=== PATIENT | male | born 1990 | race African-American/Black ===

== ENCOUNTER 2018-06-20 20:49 | Emergency (ER) | payer OTHER ==
[~2018-06-20] VITALS: Ht 182.9 cm; Wt 81.8 kg
[2018-06-20] MEDS ORDERED: methylPREDNISolone INJ 125 MG/2 ML VIAL (J2930) IM ONE (21:45)
[2018-06-20 22:33] VITALS: BP 132/81
== END 2018-06-20 22:29 | disposition home or self-care (01) ==
LOC: M ED 20:49
DX: J34.89 Other specified disorders of nose and nasal sinuses (principal); T50.995A Adverse effect of other drugs, medicaments and biological substances, initial encounter; X58.XXXA Exposure to other specified factors, initial encounter; Y92.89 Other specified places as the place of occurrence of the external cause
CPT/HCPCS: 96372; 99284; J2930

== ENCOUNTER 2018-07-15 00:18 | Emergency (ER) | payer OTHER ==
[2018-07-15 01:32] VITALS: BP 134/81
== END 2018-07-15 01:54 | disposition home or self-care (01) ==
LOC: M ED 00:18
DX: F41.9 Anxiety disorder, unspecified (principal); Z60.9 Problem related to social environment, unspecified

== ENCOUNTER 2018-12-01 08:35 | Day surgery (SDC) | payer OTHER ==
[~2018-12-01] VITALS: Ht 185.4 cm; Wt 80.7 kg
[~2018-12-01 08:35] MED LIST: LR 1,000 ML IV ONE; ceFAZolin SOD 2 GM in IV 1 EA IV ONE
[2018-12-01] MEDS ORDERED: BUPIVACAINE LIPOSOME/PF 1.3% 20ML VIAL (13.3MG/ML)(EXPAREL)(C9290 PER1MG) As Ordered ONE (09:16)
[2018-12-01] MEDS ORDERED: dexameTHASONE 4 MG/ML 1ML VIAL (J1100) As Ordered ONE (09:16)
[2018-12-01] MEDS ORDERED: BUPIVACAINE HCL 0.5% 10 ML VIAL As Ordered ONE (09:16)
[2018-12-01] MEDS ORDERED: LIDOCAINE 1% MDV 20ML VIAL As Ordered ONE (09:16)
[2018-12-01] MEDS ORDERED: LIDOCAINE 2% INJ 100 MG/5 ML SDV (FOR ANES.) As Ordered ONE (09:52)
[2018-12-01] MEDS ORDERED: ONDANSETRON 4MG/2ML VIAL (J2405) As Ordered ONE (09:52)
[2018-12-01] MEDS ORDERED: PROPOFOL 200 MG/20 ML VIAL As Ordered ONE (09:52)
[2018-12-01] MEDS ORDERED: fentaNYL 100 MCG/2 ML INJECTION (J3010) As Ordered ONE ×2 (09:52→13:29)
[2018-12-01] MEDS ORDERED: MIDAZOLAM INJ 2 MG/2 ML VIAL (J2250) As Ordered ONE (09:53)
[2018-12-01 11:00] VITALS: BP 119/68
[2018-12-01] MEDS ORDERED: fentaNYL 100 MCG/2 ML INJECTION (J3010) IV PRN (11:00)
[2018-12-01] MEDS ORDERED: LR 1,000 ML IV SCH (11:00)
[2018-12-01] MEDS ORDERED: oxyCODONE 5MG TAB PO PRN (11:00)
[2018-12-01] MEDS ORDERED: ONDANSETRON 4MG/2ML VIAL (J2405) IV PRN (11:00)
--- NOTE | 2018-12-02 08:10 | RO ---
DATE OF PROCEDURE: 12/01/2018 PREPROCEDURE DIAGNOSIS: Right foot bunion, hallux valgus. POSTPROCEDURE DIAGNOSIS: Right foot bunion, hallux valgus. PROCEDURE: Right foot bunionectomy and first metatarsal osteotomy. SURGEON: Jose Guillaume DPM DIRECTOR PAYMENT: ANESTHESIA: Monitored anesthesia care, preoperative injection of 16 mL of 1:1 mixture of 1% lidocaine plain and 0.5% Marcaine plain. ESTIMATED BLOOD LOSS: Minimal. MATERIALS: Arthrex 3.5 headless compression screw, 3-0 and 4-0 Vicryl, 4-0 nylon. INJECTABLES: 1 mL of Decadron 4 mg per mL, 10 mL Exparel. COMPLICATIONS: None. CONDITION: Stable. INDICATION: Won is a 28-year-old male who presents to [facility] with painful bunion and presents today for surgical correction. DESCRIPTION OF PROCEDURE: The patient, side and site were identified and marked in preoperative holding area. Consent was reviewed and obtained. Risks, complications, and alternatives to the procedure were explained to the patient in detail and all questions were answered. The patient was brought to the operating room and placed on the operating room table in supine position. Monitored anesthesia care was delivered by the anesthesia team. Preoperative injection of 16 mL of 1:1 mixture of 1% lidocaine plain and 0.5% Marcaine plain were injected into the right foot. The right foot was prepped and draped in the sterile fashion. Tourniquet was applied to the right ankle and inflated at 250 mmHg. A dorsal medial incision was drawn and carried through with a #15 blade. Dissection was carried down to the first metatarsal and the joint capsule was identified. T capsulotomy was performed, exposing the metatarsal head. Following this, a lateral release was performed releasing the adductor tendon, lateral capsule and sesamoidal ligaments. McGlamry elevator was used to mobilize the sesamoids. Following this, the medial eminence was resected with sagittal saw and an osteotomy was performed in the metatarsal head, transposing it laterally. This was fixated with Arthrex 3.5 headless compression screw. The remaining bone ledge was removed with sagittal saw and smoothed with rasp. It was irrigated with normal saline. A small wedge of capsule was removed from the medial capsule and capsular repair was performed with 3-0 Vicryl, subcutaneous closure with 4-0 Vicryl and skin closure with 4-0 nylon. 1 mL of Decadron was injected and then following this 10 mL of Exparel were injected into the right foot surgical site. Sterile dressings were applied. The tourniquet was deflated. The patient was brought to the postanesthesia care unit (PACU) stable with neurovascular status intact. He will be partial weight bearing with crutches. He will followup in the office in 2 days. MAYA
== END 2018-12-01 11:41 | disposition home or self-care (01) ==
LOC: M SDC 08:35
PROVIDERS: ATTEND Podiatrist Foot & Ankle Surgery
DX: M21.611 Bunion of right foot (principal); M20.11 Hallux valgus (acquired), right foot; Z87.891 Personal history of nicotine dependence
CPT/HCPCS: 28296; 88300; C1713; C9290; J0690; J1100; J2250; J2405; J3010